=== PATIENT | male | born 1945 | race Caucasian/White ===

== ENCOUNTER 2022-12-27 08:41 | Emergency (ER) | payer OTHER ==
[2022-12-27 09:03] VITALS: BMI 17.7
[2022-12-27 12:19] LABS: BASO % 0.3 % (0-2.0); EOS % 2.7 % (0-4.5); HEMATOCRIT 28.2 % (35.4-49); HEMOGLOBIN 9.6 GM/dL (11.7-16.9); LYMPH % 14.4 % (8-40); MCH 32.1 pg (25.7-33.7); MEAN CELL VOLUME 94.6 fl (80-96); MEAN PLT VOLUME 7.9 fl (7.5-11.1); MONO % 5.8 % (3.8-10.2); NEUT % 76.8 % (42.8-82.8); PLATELET COUNT 50 10^3/uL (134-434); RBC 2.98 M/mm3 (4.00-5.60); RDW 15.3 % (11.9-15.9); WHITE BLOOD COUNT 3.4 K/mm3 (4.0-10.0)
[2022-12-27 12:27] LABS: INR 1.52 (0.83-1.09); PROTHROMBIN TIME (PATIENT) 17.6 SEC (9.7-13.0)
[2022-12-27 12:30] LABS: ACTIVATED PTT 37.8 SECONDS (25.2-36.5)
[2022-12-27 12:35] LABS: CALCIUM 8.2 mg/dL (8.5-10.1)
[2022-12-27 12:37] LABS: ALBUMIN 2.2 g/dl (3.4-5.0); BLOOD UREA NITROGEN 17.5 mg/dL (7-18)
[2022-12-27 12:39] LABS: CREATININE 0.4 mg/dL (0.55-1.3)
[2022-12-27 12:40] LABS: TOT PROT 7.8 g/dl (6.4-8.2)
[2022-12-27] MEDS ORDERED: ACETAMINOPHEN 1000 MG/100 ML BAG IVPB ONE (13:38)
[2022-12-27] MEDS ORDERED: ACETAMINOPHEN INJECTION 100 ML IVPB ONE (14:03)
[2022-12-27 14:56] VITALS: RESP 18; TEMP 98.4
[2022-12-27 23:44] VITALS: BP 104/71; PULSE 99
== END 2022-12-27 23:45 | disposition home or self-care (01) ==
LOC: JER 08:41
PROC: 3E033NZ Introduction of Analgesics, Hypnotics, Sedatives into Peripheral Vein, Percutaneous Approach (ICD-10-PCS; principal; 2022-12-27)
DX: F03.90 Unspecified dementia, unspecified severity, without behavioral disturbance, psychotic disturbance, mood disturbance, and anxiety (principal); S72.002A Fracture of unspecified part of neck of left femur, initial encounter for closed fracture; S32.501A Unspecified fracture of right pubis, initial encounter for closed fracture; S09.90XA Unspecified injury of head, initial encounter; W18.30XA Fall on same level, unspecified, initial encounter
CPT/HCPCS: 36415; 70450-TC; 71045-TC-FY; 72125-TC; 72170-TC-FY; 72192-TC; 80053; 82962; 85025; 85610; 85730; 86850; 86900; 86901; 93005; 93010; 99285-25

== ENCOUNTER 2023-01-21 07:42 | Inpatient (IN) | payer OTHER ==
[2023-01-21] MEDS ORDERED: SODIUM CHLORIDE 0.9% 500 ML INFUS.BAG IV ONE (08:02)
[2023-01-21 08:52] LABS: VENOUS BASE EXCESS 3.2 mmol/L (-2-2); VENOUS O2 SATURATION 52.9 % (70-80); VENOUS PH 7.393 (7.310-7.410)
[2023-01-21 08:57] LABS: URINE APPEARANCE CLEAR; URINE BILIRUBIN NEGATIVE (NEGATIVE); URINE COLOR YELLOW; URINE GLUCOSE (UA) NEGATIVE (NEGATIVE); URINE KETONE NEGATIVE (NEGATIVE); URINE LEUK ESTERASE NEGATIVE (NEGATIVE); URINE NITRITE NEGATIVE (NEGATIVE); URINE PROTEIN NEGATIVE (NEGATIVE)
[2023-01-21 08:59] LABS: BASO % 0.3 % (0-2.0); EOS % 4.3 % (0-4.5); HEMATOCRIT 26.9 % (35.4-49); HEMOGLOBIN 9.2 GM/dL (11.7-16.9); LYMPH % 15.4 % (8-40); MCH 32.7 pg (25.7-33.7); MCHC 34.2 g/dl (32.0-35.9); MEAN CELL VOLUME 95.8 fl (80-96); MEAN PLT VOLUME 9.4 fl (7.5-11.1); MONO % 6.4 % (3.8-10.2); NEUT % 73.6 % (42.8-82.8); PLATELET COUNT 61 10^3/uL (134-434); RBC 2.81 M/mm3 (4.00-5.60); RDW 15.9 % (11.9-15.9); WHITE BLOOD COUNT 2.8 K/mm3 (4.0-10.0)
[2023-01-21 09:12] LABS: INR 1.53 (0.83-1.09); PROTHROMBIN TIME (PATIENT) 17.7 SEC (9.7-13.0)
[2023-01-21 09:14] LABS: POTASSIUM 5.4 mmol/L (3.5-5.1)
[2023-01-21 09:15] LABS: ACTIVATED PTT 36.1 SECONDS (25.2-36.5); ALBUMIN 2.2 g/dl (3.4-5.0); BLOOD UREA NITROGEN 15.8 mg/dL (7-18)
[2023-01-21 09:20] LABS: CREATININE 0.5 mg/dL (0.55-1.3)
[2023-01-21 09:21] LABS: BILIRUBIN,TOTAL 1.1 mg/dL (0.2-1); TOT PROT 7.6 g/dl (6.4-8.2)
[2023-01-21] MEDS ORDERED: ACETAMINOPHEN 325 MG TABLET (FP) PO PRN (13:13)
[2023-01-21] MEDS ORDERED: LACTULOSE 20 GM/30 ML UDC (FOR ORAL USE ONLY) PO PRN (13:18)
[2023-01-21] MEDS: BACLOFEN 10 MG TABLET (FP) PO SCH ×2 (14:06→22:13)
[2023-01-21] MEDS: INSULIN SLIDING SCALE (NOVOLOG) 1 VIAL SQ SCH ×2 (16:49→22:14)
[2023-01-21] MEDS: risperiDONE 1 MG TABLET PO SCH (21:51)
[2023-01-21] MEDS: hydrOXYzine HCL 10 MG/5 ML LIQUID BULK BOTTLE PO SCH (21:57)
[2023-01-21] MEDS ORDERED: POTASSIUM CHLORIDE 10 MEQ PO SCH (22:00)
[2023-01-21] MEDS: VALPROATE SODIUM 250 MG/5 ML LIQUID BULK BOTTLE PO SCH (22:10)
[2023-01-22] MEDS: BACLOFEN 10 MG TABLET (FP) PO SCH ×3 (06:35→21:59)
[2023-01-22 07:54] LABS: BASO % 0.5 % (0-2.0); EOS % 2.3 % (0-4.5); HEMATOCRIT 29.9 % (35.4-49); LYMPH % 23.8 % (8-40); MCH 32.4 pg (25.7-33.7); MCHC 33.3 g/dl (32.0-35.9); MEAN CELL VOLUME 97.1 fl (80-96); MEAN PLT VOLUME 8.2 fl (7.5-11.1); MONO % 1.1 % (3.8-10.2); NEUT % 72.3 % (42.8-82.8); PLATELET COUNT 40 10^3/uL (134-434); RBC 3.08 M/mm3 (4.00-5.60); RDW 16.2 % (11.9-15.9); WHITE BLOOD COUNT 2.8 K/mm3 (4.0-10.0)
[2023-01-22] MEDS: INSULIN SLIDING SCALE (NOVOLOG) 1 VIAL SQ SCH ×4 (07:58→21:59)
[2023-01-22 07:59] LABS: POTASSIUM 4.5 mmol/L (3.5-5.1)
[2023-01-22 08:04] LABS: CALCIUM 8.3 mg/dL (8.5-10.1)
[2023-01-22 08:05] LABS: ALBUMIN 2.2 g/dl (3.4-5.0); BLOOD UREA NITROGEN 20.3 mg/dL (7-18)
[2023-01-22 08:08] LABS: CREATININE 0.6 mg/dL (0.55-1.3)
[2023-01-22 08:10] LABS: BILIRUBIN,TOTAL 1.5 mg/dL (0.2-1); TOT PROT 7.8 g/dl (6.4-8.2)
[2023-01-22] MEDS ORDERED: ADENOSINE 6 MG/2 ML VIAL IVPUSH ONE ×2 (08:57→09:15)
[2023-01-22] MEDS ORDERED: FUROSEMIDE 40 MG TABLET (FP) PO SCH (10:00)
[2023-01-22] MEDS: levETIRAcetam 500 MG/5 ML ORAL SOLUTION BULK PO SCH (10:00)
[2023-01-22] MEDS: VALPROATE SODIUM 250 MG/5 ML LIQUID BULK BOTTLE PO SCH ×2 (10:00→21:57)
[2023-01-22] MEDS ORDERED: amLODIPine BESYLATE 5 MG TABLET (FP) PO SCH (10:00)
[2023-01-22] MEDS: MULTIVIT-MINERALS ORAL LIQUID PO SCH (10:00)
[2023-01-22] MEDS ORDERED: LEVOTHYROXINE NA 25 MCG TABLET (FP) PO SCH (10:00)
[2023-01-22] MEDS ORDERED: MULTIVIT-MINERALS ORAL LIQUID PO SCH (10:00)
[2023-01-22] MEDS: risperiDONE 1 MG TABLET PO SCH (10:30)
[2023-01-22] MEDS: hydrOXYzine HCL 10 MG/5 ML LIQUID BULK BOTTLE PO SCH ×2 (11:18→21:57)
[2023-01-22] MEDS ORDERED: SODIUM CHLORIDE 0.9% 500 ML INFUS.BAG IV ONE (11:19)
[2023-01-22] MEDS: ZINC SULFATE 220 MG CAPSULE (FP) PO SCH (11:36)
[2023-01-22] MEDS ORDERED: INSULIN (NOVOLOG) ASPART 100 UNITS/ML 10ML VIAL ONE (21:10)
[2023-01-23] MEDS: BACLOFEN 10 MG TABLET (FP) PO SCH ×3 (05:31→22:05)
[2023-01-23] MEDS: INSULIN SLIDING SCALE (NOVOLOG) 1 VIAL SQ SCH ×4 (06:42→22:31)
[2023-01-23] MEDS: hydrOXYzine HCL 10 MG/5 ML LIQUID BULK BOTTLE PO SCH (10:59)
[2023-01-23] MEDS: VALPROATE SODIUM 250 MG/5 ML LIQUID BULK BOTTLE PO SCH (10:59)
[2023-01-23] MEDS: MULTIVIT-MINERALS ORAL LIQUID PO SCH (10:59)
[2023-01-23] MEDS: levETIRAcetam 500 MG/5 ML ORAL SOLUTION BULK PO SCH (10:59)
[2023-01-23] MEDS: ZINC SULFATE 220 MG CAPSULE (FP) PO SCH (11:00)
[2023-01-23] MEDS: levETIRAcetam 500 MG/5 ML INJECTION VIAL IVPB SCH ×2 (13:23→22:04)
[2023-01-23] MEDS: D5-1/2NS+20 MEQ KCL - 20 MEQ/1,000 ML INFUS.BAG IV SCH (13:23)
[2023-01-23] MEDS ORDERED: METOPROLOL TARTRATE 5 MG/5 ML VIAL IVPUSH PRN (17:18)
[2023-01-23 23:58] VITALS: BMI 15.3
[2023-01-24] MEDS: BACLOFEN 10 MG TABLET (FP) PO SCH ×2 (06:20→14:31)
[2023-01-24] MEDS: INSULIN SLIDING SCALE (NOVOLOG) 1 VIAL SQ SCH ×3 (06:20→16:39)
[2023-01-24] MEDS: D5-1/2NS+20 MEQ KCL - 20 MEQ/1,000 ML INFUS.BAG IV SCH (06:23)
[2023-01-24 08:02] LABS: BASO % 0.1 % (0-2.0); EOS % 0.1 % (0-4.5); HEMATOCRIT 31.9 % (35.4-49); LYMPH % 6.5 % (8-40); MCH 32.6 pg (25.7-33.7); MCHC 34.6 g/dl (32.0-35.9); MEAN CELL VOLUME 94.2 fl (80-96); MEAN PLT VOLUME 8.4 fl (7.5-11.1); MONO % 4.9 % (3.8-10.2); NEUT % 88.4 % (42.8-82.8); PLATELET COUNT 46 10^3/uL (134-434); RBC 3.39 M/mm3 (4.00-5.60); WHITE BLOOD COUNT 7.2 K/mm3 (4.0-10.0)
[2023-01-24 08:18] LABS: POTASSIUM 4.3 mmol/L (3.5-5.1)
[2023-01-24 08:25] LABS: BLOOD UREA NITROGEN 41.5 mg/dL (7-18)
[2023-01-24 08:26] LABS: CREATININE 0.6 mg/dL (0.55-1.3)
[2023-01-24 08:27] LABS: BILIRUBIN,TOTAL 2.2 mg/dL (0.2-1); TOT PROT 6.4 g/dl (6.4-8.2)
[2023-01-24 08:33] LABS: ALBUMIN 1.7 g/dl (3.4-5.0)
[2023-01-24] MEDS: MULTIVIT-MINERALS ORAL LIQUID PO SCH (09:27)
[2023-01-24] MEDS: levETIRAcetam 500 MG/5 ML INJECTION VIAL IVPB SCH ×2 (09:28→21:27)
[2023-01-24] MEDS ORDERED: MORPHINE SULFATE/0.9% NACL/PF 100 MG/100 ML BAG IVPB SCH (10:30)
[2023-01-24] MEDS: ZINC SULFATE 220 MG CAPSULE (FP) PO SCH (11:05)
[2023-01-25 06:23] VITALS: RESP 22
[2023-01-25] MEDS ORDERED: MORPHINE SULFATE/0.9% NACL/PF 100 MG/100 ML BAG IVPB SCH (06:54)
[2023-01-25] MEDS ORDERED: METOPROLOL TARTRATE 5 MG/5 ML VIAL IVPUSH PRN (06:54)
[2023-01-25] MEDS: levETIRAcetam 500 MG/5 ML INJECTION VIAL IVPB SCH ×2 (10:39→22:29)
[2023-01-25 15:45] VITALS: BP 42/23; PULSE 65; TEMP 98
== END 2023-01-25 18:40 | disposition expired | DRG 44 ==
LOC: JER 07:42 → JERBED 10:04 → J4W 15:01 → OBSVTOIN 01-23 11:33 → J8W 01-24 18:13
PROVIDERS: ADMIT Internal Medicine; ATTEND Internal Medicine
DX: I62.02 Nontraumatic subacute subdural hemorrhage (principal); E43 Unspecified severe protein-calorie malnutrition; F03.90 Unspecified dementia, unspecified severity, without behavioral disturbance, psychotic disturbance, mood disturbance, and anxiety; K76.82 Hepatic encephalopathy; J44.9 Chronic obstructive pulmonary disease, unspecified; E03.9 Hypothyroidism, unspecified; E11.9 Type 2 diabetes mellitus without complications; E46 Unspecified protein-calorie malnutrition; I10 Essential (primary) hypertension; K21.9 Gastro-esophageal reflux disease without esophagitis; I95.9 Hypotension, unspecified; K70.30 Alcoholic cirrhosis of liver without ascites; F32.9 Major depressive disorder, single episode, unspecified; R64 Cachexia; Z68.1 Body mass index [BMI] 19.9 or less, adult; F23 Brief psychotic disorder; R29.6 Repeated falls; R00.0 Tachycardia, unspecified; I46.9 Cardiac arrest, cause unspecified; Z66 Do not resuscitate; D69.6 Thrombocytopenia, unspecified; W18.30XA Fall on same level, unspecified, initial encounter; Y92.098 Other place in other non-institutional residence as the place of occurrence of the external cause
CPT/HCPCS: 0241U-QW; 36415; 70450-TC; 71045-TC-FY; 72125-TC; 80053; 81003; 82140; 82272; 82550; 82553; 82803; 82962; 83036; 83605; 84439; 84443; 84484; 85025; 85610; 85730; 87040; 87086; 93005; 93010; 99285-25; G0378; J0475